=== PATIENT | female | born 1935 | race Hispanic/Latino ===

== ENCOUNTER 2018-02-11 00:52 | Emergency (ER) | payer MEDICARE, MEDICAID ==
[2018-02-11] MEDS ORDERED: traMADol HCl 50 MG TAB ONE (01:14)
== END 2018-02-11 01:50 | disposition home or self-care (01) ==
LOC: SCSER 00:52
DX: H60.91 Unspecified otitis externa, right ear (principal); E78.5 Hyperlipidemia, unspecified; I10 Essential (primary) hypertension
CPT/HCPCS: 99282

== ENCOUNTER 2018-07-08 20:39 | Emergency (ER) | payer MEDICARE, OTHER ==
[2018-07-08] MEDS ORDERED: Bacitracin Zinc 1 Packet ONE (21:27)
--- NOTE | 2018-07-08 21:30 | RAD ---
RIGHT LOWER LEG TWO VIEWS: 07/08/18 HISTORY: Right leg injury. FINDINGS: Tibia and fibula are intact. No acute fracture, dislocation, or radiopaque foreign bodies. There is c alcification throughout the arterial structures. IMPRESSION: No acute osseous abnormalities are demonstrated. Atherosclerosis. POS: [facility]
== END 2018-07-08 21:46 | disposition home or self-care (01) ==
LOC: SCSER 20:39
DX: S80.11XA Contusion of right lower leg, initial encounter (principal); E78.5 Hyperlipidemia, unspecified; I10 Essential (primary) hypertension; W20.8XXA Other cause of strike by thrown, projected or falling object, initial encounter

== ENCOUNTER 2019-06-29 17:24 | Observation (INO) | payer MEDICARE, MEDICAID ==
[~2019-06-29 17:24] MED LIST: Iopamidol 300 61% 100 ML VIAL FS ONE
[2019-06-29] MEDS ORDERED: Ondansetron PF 4 MG/2 ML Vial ONE (18:06)
[2019-06-29 18:07] LABS: Hemoglobin 14.8 g/dL (12.0-16.0); Mean Corpuscular HGB CONC 34.5 g/dL (32.0-36.0); Mean Corpuscular Hemoglobin 31.3 pg (27.0-31.0); Mean Corpuscular Volume 90.8 fL (78.0-98.0); Mean Platelet Volume 7.5 fL (7.4-10.4); Platelet Count 200 thou/uL (130-400); RBC Distribution Width 12.7 % (11.5-14.5); Red Blood Cell (RBC) Count 4.71 mill/uL (4.20-5.40); White Blood Cell (WBC) Count 14.7 thou/uL (4.8-10.8)
[2019-06-29 18:20] LABS: ALT (SGPT) 24 U/L (8-55); AST (SGOT) 44 U/L (5-34); Albumin 3.8 g/dL (3.4-4.8); Alkaline Phosphatase 166 U/L (40-110); Anion Gap 16 mmol/L (10-20); BUN (Urea Nitrogen) 15 mg/dL (9.8-20.1); Bilirubin, Total 0.4 mg/dL (0.2-1.2); CK (CPK) 56 U/L (29-168); Calc. Creatinine Clearance 0 mL/min (70-130); Calcium 8.4 mg/dL (7.8-10.44); Carbon Dioxide 20 mmol/L (23-31); Chloride 109 mmol/L (98-107); Estimated GFR-MDRD 66; Globulin 3.8 g/dL (2.4-3.5); Glucose 139 mg/dL (83-110); Potassium 4.7 mmol/L (3.5-5.1); Protein, Total 7.6 g/dL (6.0-8.3); Sodium 140 mmol/L (136-145)
[2019-06-29 18:25] LABS: Band 3 % (5-11); Eosinophils 1 % (0-10); Lymphocytes 13 % (21-51); MDiff Complete? YES; Monocytes 4 % (0-10); Neutrophil 79 % (42-75); Platelet Morphology Comment Appears Adequate; RBC Morphology Normal
--- NOTE | 2019-06-29 19:23 | CT ---
CT ABDOMEN AND PELVIS WITH CONTRAST: HISTORY: Abdominal pain, vomiting and diarrhea. COMPARISON: 12/09/2015 FINDINGS: ABDOMEN: The lung bases show a mosaic pattern with ground glass opacity and areas of decreased attenu ation. This is a similar appearance to the previous exam, could be on the basis of air trapping. No c onfluent infiltrative process is seen. The liver shows no focal abnormalities, however, the contour h as a nodular, cirrhotic appearance. The liver measures approximately 19 cm. The spleen is 11.2 cm in length. The pancreas region is unremarkable. The gallbladder is distended. No pericholecystic inflamm atory process. No obvious signs of any gallbladder wall edema. The right and left adrenal glands and the right and left kidneys are normal in size. No obstruction. There is no significant periaortic adenopathy. No significant mesenteric adenopathy is noted. There i s fluid present within the colon, which is consistent with the history of diarrhea. There are varicos ities noted with prominent paraesophageal varices. Questionable slight wall thickening to the descend ing colon, which is probably just on the basis of under-distention. PELVIS: The appendix region is unremarkable. Minimal sigmoid diverticulosis is noted. No free fluid d emonstrated. IMPRESSION: 1. Nodular, cirrhotic liver with borderline liver and spleen size and evidence of varices. 2. Distended gallbladder. 3. Fluid within the colon. Questionable slight wall thickening to the descending colon, probably on t he basis of under-distention. POS: [facility]
--- NOTE | 2019-06-29 20:05 | ULT ---
US Gallbladder RUQ History: Abdominal pain Comparison: CT abdomen and pelvis same day Findings: Real-time grayscale and color evaluation of the right upper quadrant of the abdomen was per formed. Hepatic contour is nodular. Increased hepatic echotexture. Gallbladder wall thickness is normal. No pericholecystic fluid. No cholelithiasis. Common bile duct is normal. Portal vein is patent with antegrade flow. Right kidney measures 10.8 x 4.4 x 6.3 cm without mass, hydronephrosis, or abnormal calcifications Impression: 1. Hepatic cirrhosis without mass. 2. No evidence for cholecystitis.
[2019-06-29] MEDS ORDERED: Promethazine HCl 25 MG/ML VIAL ONE (20:20)
[2019-06-29 20:33] LABS: Bilirubin Negative (Negative); Blood, Urine Trace (Negative); Clarity Clear (Clear); Glucose, Urine (Dipstick) Negative (Negative); Leukocyte Negative (Negative); Nitrite Negative (Negative); Protein, Urine (Dipstick) Negative (Neg-Trace); Urobilinogen 0.2 mg/dL (Less than 2)
[2019-06-29 20:37] LABS: Bacteria/HPF Rare-Few HPF (None Seen); RBC/HPF 0-3 HPF (0-3); Squamous Epithelial 0-3 HPF (0-3); WBC/HPF None Seen HPF (0-3)
[2019-06-29] MEDS ORDERED: Acetaminophen 650 MG Suppository PR PRN (22:12)
[2019-06-29] MEDS: Acetaminophen 325 MG TAB PO PRN (22:38)
[2019-06-30] MEDS ORDERED: Ondansetron PF 4 MG/2 ML Vial IVP PRN ×2 (05:30→11:18)
[2019-06-30] MEDS: Acetaminophen 325 MG TAB PO PRN (05:33)
[2019-06-30] MEDS ORDERED: Lactated Ringer's 1,000 ML IV SCH (09:45)
[2019-06-30] MEDS ORDERED: Acetaminophen 325 MG TAB PO PRN (11:18)
[2019-06-30] MEDS ORDERED: Guaifenesin DM 100-10/5 ML UDCUP PO PRN (11:18)
[2019-06-30] MEDS ORDERED: Alendronate Sodium 70 mg Tablet PO SCH (11:30)
[2019-06-30 11:51] LABS: #Monocytes 1.1 thou/uL (0.11-0.59); #Neutrophils 8.6 thou/uL (1.40-6.50); %Basophils 0.3 % (0.0-1.0); %Eosinophils 0.3 % (0.0-10.0); %Lymphocytes 16.9 % (21.0-51.0); %Monocytes 9.5 % (0.0-10.0); Mean Corpuscular HGB CONC 33.7 g/dL (32.0-36.0); Mean Corpuscular Hemoglobin 31.3 pg (27.0-31.0); Mean Corpuscular Volume 92.9 fL (78.0-98.0); Mean Platelet Volume 7.1 fL (7.4-10.4); Platelet Count 164 thou/uL (130-400); RBC Distribution Width 12.7 % (11.5-14.5); Red Blood Cell (RBC) Count 4.15 mill/uL (4.20-5.40); White Blood Cell (WBC) Count 11.8 thou/uL (4.8-10.8)
--- NOTE | 2019-06-30 11:57 | HP ---
REASON FOR ADMISSION: Gastroenteritis. HISTORY OF PRESENTING ILLNESS: The patient gives history of having severe nausea, vomiting, and diarrhea all from yesterday afternoon. She vomited nearly 4 or 5 times. She has had nearly 8 times watery diarrhea at home and another 5 times after arriving to the ER. No blood or mucus in the stool. From midnight, the patient has not had any diarrhea or nausea. She kind of feels good at present. The patient had abdominal colic mostly in the upper quadrant, which has again resolved at present. She lives with her daughter. The daughter does not have similar symptoms. No prior history of liver problems per patient. No complaints of fever, cough, or expectoration. On arrival, had a fever of 100 degrees here in the ER. PAST MEDICAL AND SURGICAL HISTORY: History of dyslipidemia, hypertension, osteoarthritis, GERD. No prior surgical history. CURRENT MEDICATIONS: The patient takes: 1. Alendronate 70 mg once weekly. 2. Norvasc 2.5 mg p.o. daily. 3. Coreg 3.125 mg twice daily. 4. Vytorin 10/10 mg p.o. daily. 5. Protonix 40 mg p.o. daily. ALLERGIES: TO DOXYCYCLINE, HYDROCODONE. PERSONAL HISTORY: Does not abuse alcohol or drugs. No history of smoking. She ambulates by herself. She lives with her daughter. FAMILY HISTORY: Both parents in their 80s of natural causes. REVIEW OF SYSTEMS: CONSTITUTIONAL: Negative for weight loss or gain, ability to conduct usual activities. SKIN: Negative for rash, itching. EYES: Negative for double vision, pain. ENT/MOUTH: Negative for nose bleeding, neck stiffness, pain, tenderness. CARDIOVASCULAR: Negative for palpitations, dyspnea on exertion, orthopnea. RESPIRATORY: Negative for shortness of breath, wheezing, cough, hemoptysis, fever or night sweats. GASTROINTESTINAL: Negative for poor appetite, abdominal pain, heartburn, nausea , vomiting, constipation, or diarrhea. GENITOURINARY: Negative for urgency, frequency, dysuria, nocturia. MUSCULOSKELETAL: Negative for pain, swelling. NEUROLOGIC/PSYCHIATRIC: Negative for anxiety, depression. ALLERGY/IMMUNOLOGIC: Negative for skin rash, bleeding tendency. MUSCULOSKELETAL: Negative for pain, swelling. NEUROLOGIC/PSYCHIATRIC: Negative for anxiety, depression. ALLERGY/IMMUNOLOGIC: Negative for skin rash, bleeding tendency. PHYSICAL EXAMINATION: GENERAL: The patient is an 84-year-old female, who is currently not in any acute distress. VITAL SIGNS: Blood pressure 162/88, pulse 106 per minute, respiratory rate 20 per minute, temperature 100 degrees Fahrenheit, saturating 97% on room air. NECK: Supple. No elevated JVD. HEENT: Eyes; extraocular muscles intact. Pupils are reacting to light. Oral cavity, mucous membranes are dry. No exudates or congestion. CARDIOVASCULAR SYSTEM: S1 and S2 heard. Regular rhythm. RESPIRATORY SYSTEM: Air entry 1+ bilateral. No rales or rhonchi. ABDOMEN: Soft. Bowel sounds heard. No tenderness, rigidity, or guarding. EXTREMITIES: No peripheral edema or calf tenderness. VASCULAR SYSTEM: Peripheral pulses 1+ bilateral. No ischemic ulcerations or gangrene. CENTRAL NERVOUS SYSTEM: No gross focal deficits noted. The patient is alert, awake, and oriented well. PSYCHIATRIC SYSTEM: The patient's mood is euthymic. No hallucinations or delusions. LABORATORY DATA: White count of 14, H and H of 14 and 42, platelet count 200, MCV is 90 with 79% neutrophils, 3% bands. Serum bicarb 20, serum chloride 109, BUN 15, creatinine 0.8, serum glucose 139, AST 44, ALT 24, alkaline phosphatase 166, total bilirubin 0.4, albumin is 3.8, lipase is 17. CT of the abdomen and pelvis with contrast done showed cirrhotic liver with enlarged spleen. The gallbladder was distended. No evidence of gallbladder wall edema. There is fluid within the colon, especially the descending colon with mild thickening. Ultrasound of right upper quadrant done shows hepatic cirrhosis without mass. Common bile duct size was normal. Portal vein is patent and flow is antegrade. No evidence of cholecystitis. EKG done shows normal sinus rhythm at 93 beats per minute. There is questionable Q waves in V1, V2. CLINICAL IMPRESSION AND PLAN: The patient will be under observation for severe gastroenteritis with [id number] dehydration. The patient is currently feeling well with fluid resuscitation done in the ER. She has received a total of 2 L IV fluid in the ER, a dose of Phenergan and Zofran. Currently, her diarrhea has completely stopped from midnight. If the patient were to have diarrhea, it will be collected for cultures. She will be placed on solid diet. We will give her one more bag of lactated Ringer. We will continue her home dose of Norvasc, Coreg, Zetia, and Protonix. If the patient were to feel better after her dinner with solid food, she can be safely discharged home. If the patient were to have further nausea, vomiting, or diarrhea, she needs to stay overnight. The patient does not know if she has cirrhosis and we will obtain hepatitis panel. Job ID: [id number] MTDD
[2019-06-30 12:20] LABS: Anion Gap 10 mmol/L (10-20); BUN (Urea Nitrogen) 18 mg/dL (9.8-20.1); Calc. Creatinine Clearance 72 mL/min (70-130); Calcium 7.6 mg/dL (7.8-10.44); Carbon Dioxide 21 mmol/L (23-31); Chloride 113 mmol/L (98-107); Estimated GFR-MDRD 69; Glucose 109 mg/dL (83-110); Potassium 3.6 mmol/L (3.5-5.1); Sodium 140 mmol/L (136-145)
[2019-06-30 12:45] LABS: HBCM Index 0.07 S/CO (0-0.79); HBSAg Index 0.18 S/CO (0-0.99); Hep A IgM AB Non-Reactive (NonReactive); Hep A IgM S/CO 0.19 S/CO (0-0.79); Hep B Surf Ag Non-Reactive S/CO (NonReactive); Hep C IgG Ab Non-Reactive (NonReactive); Hep C Index 0.06 S/CO (0-0.79); Hepatitis B Core IgM Abs Non-Reactive (NonReactive)
[2019-06-30 13:31] VITALS: BMI 31.4
[2019-06-30] MEDS: Carvedilol 3.125 MG TAB PO SCH (20:56)
[2019-06-30] MEDS ORDERED: Simvastatin 5 MG TAB PO SCH (21:00)
[2019-07-01 06:10] LABS: #Basophils 0.1 thou/uL (0.0-0.2); #Eosinphils 0.2 thou/uL (0.0-0.7); #Lymphocytes 2.6 thou/uL (1.20-3.40); #Monocytes 0.9 thou/uL (0.11-0.59); %Basophils 0.6 % (0.0-1.0); %Eosinophils 1.9 % (0.0-10.0); %Lymphocytes 29.8 % (21.0-51.0); %Monocytes 10.6 % (0.0-10.0); %Neutrophils 57.1 % (42.0-75.0); Hemoglobin 12.1 g/dL (12.0-16.0); Mean Corpuscular HGB CONC 34.4 g/dL (32.0-36.0); Mean Corpuscular Hemoglobin 32.2 pg (27.0-31.0); Mean Corpuscular Volume 93.6 fL (78.0-98.0); Mean Platelet Volume 7.4 fL (7.4-10.4); Platelet Count 144 thou/uL (130-400); RBC Distribution Width 12.6 % (11.5-14.5); Red Blood Cell (RBC) Count 3.74 mill/uL (4.20-5.40); White Blood Cell (WBC) Count 8.7 thou/uL (4.8-10.8)
[2019-07-01 06:30] LABS: ALT (SGPT) 13 U/L (8-55); AST (SGOT) 30 U/L (5-34); Albumin 2.9 g/dL (3.4-4.8); Alkaline Phosphatase 88 U/L (40-110); Anion Gap 10 mmol/L (10-20); BUN (Urea Nitrogen) 10 mg/dL (9.8-20.1); Bilirubin, Total 0.4 mg/dL (0.2-1.2); Calc. Creatinine Clearance 82 mL/min (70-130); Calcium 7.5 mg/dL (7.8-10.44); Carbon Dioxide 21 mmol/L (23-31); Chloride 113 mmol/L (98-107); Estimated GFR-MDRD 81; Globulin 2.9 g/dL (2.4-3.5); Glucose 96 mg/dL (83-110); Potassium 3.7 mmol/L (3.5-5.1); Protein, Total 5.8 g/dL (6.0-8.3); Sodium 140 mmol/L (136-145)
[2019-07-01] MEDS: Carvedilol 3.125 MG TAB PO SCH (08:33)
[2019-07-01] MEDS ORDERED: Enoxaparin Sodium 40 MG/0.4 ML SYRINGE SC SCH (09:00)
[2019-07-01] MEDS ORDERED: Ezetimibe 10 MG TAB PO SCH (09:00)
[2019-07-01] MEDS ORDERED: Amlodipine 5 MG TAB PO SCH (09:00)
[2019-07-01 12:51] VITALS: BP 150/65; TEMP 97.5
--- NOTE | 2019-07-02 08:32 | DIS ---
DATE OF ADMISSION: 06/29/2019 DATE OF DISCHARGE: 07/01/2019 PRIMARY CARE PROVIDER: Dr. Bee Valadez. DISCHARGE DIAGNOSES: 1. Moderate to severe dehydration. 2. Severe gastroenteritis. CONDITION OF PATIENT ON THE DAY OF DISCHARGE: Stable. I assessed Ms. Slaughter on the day of discharge. She denies any chest pain or shortness of breath. She denies any nausea, vomiting, or diarrhea. Vital signs are stable. S1 and S2 are heard, regular. Lungs are clear to auscultation bilaterally. DISCHARGE MEDICATIONS: No change was made to her pre-admission home medications as dictated by Dr. Arguelles in his history and physical note, dated June 30, 2019. FOLLOWUP APPOINTMENTS: The patient is advised to follow up with primary care provider in 3 days' time. She is also advised to obtain final stool culture result when she sees her primary care provider. At the time of this dictation, the final culture report is pending. HOSPITAL COURSE: Ms. Slaughter is a pleasant 84-year-old lady, who was admitted to [facility] on June 30, 2019, on observation status for moderate to severe dehydration in the context of severe gastroenteritis. Please refer to Dr. Arguelles's history and physical note dated June 30, 2019, for further details. Ultrasound report of the abdomen showed hepatic cirrhosis. CT scan of the abdomen showed nodular cirrhotic liver with borderline liver and spleen size and evidence of varices. She is advised to follow up with her primary care provider regarding these findings. She improved clinically with fluid resuscitation. Campylobacter antigen and shiga toxins were negative. Clostridium difficile test was negative as well. She is being discharged home in a stable condition after clinical improvement. Many thanks for allowing me to participate in your patient's care. Please feel free to contact me with any questions or concerns. DISCHARGE DESTINATION: Home. On the day of discharge, she has white count of 8700, hemoglobin 12.1, platelet count 144,000, sodium 140, potassium 3.7, carbon dioxide 21, and creatinine 0.69. Total bilirubin is 0.4, AST 30, ALT 13, and alkaline phosphatase 88. Job ID: [id number]
== END 2019-07-01 12:41 | disposition home or self-care (01) ==
LOC: SCSER 17:24 → T4-B 21:39
PROVIDERS: ADMIT Hospitalist; ATTEND Hospitalist
DX: E86.0 Dehydration (principal); K52.9 Noninfective gastroenteritis and colitis, unspecified; K74.60 Unspecified cirrhosis of liver; E78.5 Hyperlipidemia, unspecified; I10 Essential (primary) hypertension; M19.90 Unspecified osteoarthritis, unspecified site; K21.9 Gastro-esophageal reflux disease without esophagitis; Z79.83 Long term (current) use of bisphosphonates; Z79.899 Other long term (current) drug therapy; Z88.1 Allergy status to other antibiotic agents; Z88.5 Allergy status to narcotic agent
CPT/HCPCS: 51701; 74177; 76705; 80048; 80053 ×2; 80074; 82550; 83605; 83690; 84484; 85025 ×3; 87045; 87046; 87324; 87427 ×2; 87449 ×2; 93005; 96361 ×3; 96365; 96372; 96375; 99285; G0378 ×4; 36415; 81003; 81015; A4353; J1650; J2405; J2550; Q9967

== ENCOUNTER 2019-08-20 10:36 | Emergency (ER) | payer MEDICARE, MEDICAID ==
[2019-08-20] MEDS ORDERED: Adacel (T-DAP) 0.5 ML SYRINGE ONE (10:50)
[2019-08-20 11:29] LABS: #Basophils 0.1 thou/uL (0.0-0.2); #Eosinphils 0.2 thou/uL (0.0-0.7); #Lymphocytes 1.9 thou/uL (1.20-3.40); #Monocytes 0.7 thou/uL (0.11-0.59); #Neutrophils 5.6 thou/uL (1.40-6.50); %Basophils 0.8 % (0.0-1.0); %Lymphocytes 22.6 % (21.0-51.0); %Monocytes 8.2 % (0.0-10.0); %Neutrophils 66.4 % (42.0-75.0); Hemoglobin 13.4 g/dL (12.0-16.0); Mean Corpuscular HGB CONC 33.6 g/dL (32.0-36.0); Mean Corpuscular Hemoglobin 31.2 pg (27.0-31.0); Mean Corpuscular Volume 92.9 fL (78.0-98.0); Mean Platelet Volume 8.1 fL (7.4-10.4); Platelet Count 162 thou/uL (130-400); RBC Distribution Width 12.5 % (11.5-14.5); Red Blood Cell (RBC) Count 4.29 mill/uL (4.20-5.40); White Blood Cell (WBC) Count 8.5 thou/uL (4.8-10.8)
[2019-08-20] MEDS ORDERED: Lidocaine 1% w/Epinephrine 1:100K 20 ML VIAL ONE (11:29)
[2019-08-20 11:37] LABS: Anion Gap 16 mmol/L (10-20); BUN (Urea Nitrogen) 14 mg/dL (9.8-20.1); Calc. Creatinine Clearance 0 mL/min (70-130); Calcium 9.2 mg/dL (7.8-10.44); Carbon Dioxide 23 mmol/L (23-31); Chloride 107 mmol/L (98-107); Estimated GFR-MDRD 78; Glucose 124 mg/dL (83-110); Potassium 4.6 mmol/L (3.5-5.1); Sodium 141 mmol/L (136-145)
--- NOTE | 2019-08-20 11:54 | CT ---
CT HEAD WITHOUT CONTRAST: Date: 08/20/19 INDICATION: Fall with injury to head. COMPARISON: 05/13/16. FINDINGS: Ventricles have normal size and position. No evidence of intracranial mass or infarct. IMPRESSION: No acute abnormality. POS: [facility]
[2019-08-20] MEDS ORDERED: Bacitracin 1 PK ONE (12:04)
== END 2019-08-20 12:07 | disposition home or self-care (01) ==
LOC: SCSER 10:36
DX: S01.01XA Laceration without foreign body of scalp, initial encounter (principal); E78.5 Hyperlipidemia, unspecified; E78.00 Pure hypercholesterolemia, unspecified; I10 Essential (primary) hypertension; M19.90 Unspecified osteoarthritis, unspecified site; Z23 Encounter for immunization; W18.30XA Fall on same level, unspecified, initial encounter
CPT/HCPCS: 12002; 36415; 70450; 80048; 85025; 90471; 90715; 93005

== ENCOUNTER 2020-02-12 13:42 | Outpatient (CLI) | payer MEDICARE, MEDICAID ==
--- NOTE | 2020-02-12 14:32 | CT ---
EXAM: CT Cervical Spine WO Con PROVIDED CLINICAL HISTORY: Neck pain status post fall COMPARISON: None FINDINGS: There is no evidence for fracture or traumatic subluxation. There is slight anterolisthesis of C3 on C4 and C4 on C5 on the basis of degenerative change. Vertebral body heights appear preserved. Conspicuous facet arthritis is seen left of midline at C3-4, C4-5 and C5-6. Uncinate process hypertro phy and facet arthritis left of midline at C5-6 produces at least moderate left foraminal narrowing. No additional bony canal or foraminal narrowing is apparent. No prevertebral soft tissue s welling apparent. Minimal vascular calcification. The visualized lung apices appear clear. IMPRESSION: 1. No evidence for fracture or traumatic subluxation. 2. Cervical degenerative changes as described.
--- NOTE | 2020-02-12 18:41 | MRI ---
MRI OF THE BRAIN WITHOUT CONTRAST: 02/12/20 HISTORY: Headaches. TECHNIQUE: Multiplanar and multisequence MRI images were obtained of the brain without contrast. FINDINGS: There are a few very subtle foci of high FLAIR signal in the periventricular white matter which may b e secondary to small vessel ischemic disease. No restricted diffusion is seen to suggest an acute inf arction. There is no evidence of hydrocephalus, intracranial hemorrhage or extra-axial fluid collection. The e xpected flow voids are present. The corpus callosum, pituitary and craniocervical junction are unrema rkable. The calvarium and overlying soft tissues are unremarkable. The visualized paranasal sinuses and masto id air cells are well aerated. IMPRESSION: No evidence of acute intracranial abnormality. POS: [facility]
== END 2020-02-12 13:43 | disposition home or self-care (01) ==
LOC: BICCT 13:42
PROVIDERS: ATTEND Family Medicine
DX: M54.2 Cervicalgia (principal); G44.89 Other headache syndrome; M47.812 Spondylosis without myelopathy or radiculopathy, cervical region
CPT/HCPCS: 70551; 72125

== ENCOUNTER 2023-04-30 19:28 | Emergency (ER) | payer OTHER, MEDICAID ==
[~2023-04-30 19:28] MED LIST changes: -Iopamidol 300 61% 100 ML VIAL FS ONE; +Iopamidol-370 76% 500 ML MDV (1 ML CHARGE) ONE
[2023-04-30] MEDS ORDERED: Nitroglycerin 0.4 MG TAB 1 EACH ONE (19:53)
[2023-04-30 20:00] LABS: #Basophils 0.1 thou/uL (0.0-0.2); #Eosinphils 0.3 thou/uL (0.0-0.7); #Monocytes 0.9 thou/uL (0.11-0.59); #Neutrophils 5.4 thou/uL (1.40-6.50); %Basophils 0.6 % (0.0-1.0); %Eosinophils 3.1 % (0.0-10.0); %Lymphocytes 21.8 % (21.0-51.0); %Monocytes 10.6 % (0.0-10.0); %Neutrophils 63.5 % (42.0-75.0); Hematocrit 35.4 % (36.0-47.0); Hemoglobin 12.1 g/dL (12.0-16.0); Mean Corpuscular HGB CONC 34.2 g/dL (32.0-36.0); Mean Corpuscular Hemoglobin 31.1 pg (27.0-31.0); Mean Platelet Volume 9.5 fL (7.4-10.4); Platelet Count 160 10x3/uL (130-400); RBC Distribution Width 13.1 % (11.5-14.5); Red Blood Cell (RBC) Count 3.89 mill/uL (4.20-5.40); White Blood Cell (WBC) Count 8.5 10x3/uL (4.8-10.8)
[2023-04-30 20:27] LABS: ALT (SGPT) 11 U/L (8-55); AST (SGOT) 24 U/L (5-34); Albumin 3.5 g/dL (3.4-4.8); Alkaline Phosphatase 118 U/L (40-110); Anion Gap 14 mmol/L (10-20); BUN (Urea Nitrogen) 25 mg/dL (9.8-20.1); Bilirubin, Total 0.3 mg/dL (0.2-1.2); Calc. Creatinine Clearance 0 mL/min (70-130); Calcium 8.7 mg/dL (7.8-10.44); Carbon Dioxide 21 mmol/L (23-31); Chloride 104 mmol/L (98-107); Estimated GFR 55; Globulin 3.4 g/dL (2.4-3.5); Glucose 144 mg/dL (83-110); Potassium 3.9 mmol/L (3.5-5.1); Protein, Total 6.9 g/dL (5.8-8.1); Sodium 135 mmol/L (136-145)
[2023-04-30] MEDS ORDERED: Morphine 4 MG/ML VIAL ONE (21:43)
== END 2023-05-01 | disposition home or self-care (01) ==
LOC: ERS 19:28
DX: R07.81 Pleurodynia (principal); I10 Essential (primary) hypertension; E78.5 Hyperlipidemia, unspecified; Z79.899 Other long term (current) drug therapy
CPT/HCPCS: 36415; 71045; 71275; 80053; 83880; 84484; 85025; 85379; 93005; 94760; 96374; J2270; Q9967

== ENCOUNTER 2024-11-02 11:02 | Inpatient (IN) | payer OTHER, MEDICAID ==
[2024-11-02 12:26] LABS: #Basophils 0.04 10x3/uL (0.0-0.2); %Basophils 0.5 % (0.0-1.0); %Eosinophils 2.7 % (0.0-10.0); %Lymphocytes 21.3 % (21.0-51.0); %Monocytes 9.5 % (0.0-10.0); %Neutrophils 65.6 % (42.0-75.0); Hematocrit 39.1 % (36.0-47.0); Hemoglobin 13.1 g/dL (12.0-16.0); Mean Corpuscular HGB CONC 33.5 g/dL (32.0-36.0); Mean Corpuscular Volume 92.4 fL (78.0-98.0); Mean Platelet Volume 9.7 fL (7.4-10.4); Platelet Count 165 10x3/uL (130-400); RBC Distribution Width 13.5 % (11.5-14.5); Red Blood Cell (RBC) Count 4.23 mill/uL (4.20-5.40)
[2024-11-02 12:38] LABS: INR-International Normal Ratio 1.1; Prothrombin Time 14.4 sec (12.0-14.7)
[2024-11-02 12:48] LABS: ALT (SGPT) 14 U/L (Less than 34); AST (SGOT) 48 U/L (11-34); Albumin 3.1 g/dL (3.1-4.5); Alkaline Phosphatase 129 U/L (40-110); Anion Gap 13 mmol/L (10-20); BUN (Urea Nitrogen) 20 mg/dL (9.8-20.1); Bilirubin, Total 0.8 mg/dL (0.3-1.2); Calc. Creatinine Clearance 0 mL/min (70-130); Calcium 9.2 mg/dL (7.8-10.44); Carbon Dioxide 24 mmol/L (23-31); Chloride 107 mmol/L (98-107); Estimated GFR 65; Glucose 122 mg/dL (83-110); Potassium 4.5 mmol/L (3.5-5.1); Protein, Total 7.1 g/dL (5.8-8.1); Sodium 139 mmol/L (136-145); Troponin I 0.022 ng/mL (< 0.028)
[2024-11-02] MEDS ORDERED: Morphine 2 MG/ML VIAL ONE (14:08)
[2024-11-02] MEDS ORDERED: Furosemide 40 MG (4 mL) VIAL ONE (14:08)
[2024-11-02 15:54] LABS: Magnesium 1.8 mg/dL (1.6-2.6)
[2024-11-02] MEDS ORDERED: Ondansetron PF 4 MG/2 ML Vial IVP PRN (16:04)
[2024-11-02] MEDS ORDERED: Calcium Carbonate 500 MG ChewTAB PO PRN (16:04)
[2024-11-02] MEDS ORDERED: Electrolyte Replacement Protocol FS PRN (16:15)
[2024-11-02 16:33] LABS: Troponin I 0.014 ng/mL (< 0.028)
[2024-11-02 17:24] VITALS: BMI 31.1
[2024-11-02] MEDS: Acetaminophen 325 MG TAB PO PRN (17:41)
[2024-11-02] MEDS: Magnesium 2 GM/50 ML(in water) 2 GM in Premix 1 BAG IVPB SCH (19:43)
[2024-11-02] MEDS: Carvedilol 3.125 MG TAB PO SCH (19:44)
[2024-11-02] MEDS: Electrolyte Replacement Protocol 1 EACH FS ONE (19:50)
[2024-11-02 20:25] LABS: Troponin I 0.011 ng/mL (< 0.028)
[2024-11-02] MEDS ORDERED: Famotidine 20 MG TAB PO SCH (21:00)
[2024-11-03] MEDS: Furosemide 20 MG (2 mL) VIAL SLOW IVP SCH (04:51)
[2024-11-03 05:54] LABS: #Basophils 0.05 10x3/uL (0.0-0.2); %Basophils 0.8 % (0.0-1.0); %Eosinophils 3.3 % (0.0-10.0); %Lymphocytes 30.2 % (21.0-51.0); %Monocytes 11.2 % (0.0-10.0); %Neutrophils 54.2 % (42.0-75.0); Hematocrit 35.7 % (36.0-47.0); Hemoglobin 11.9 g/dL (12.0-16.0); Mean Corpuscular HGB CONC 33.3 g/dL (32.0-36.0); Mean Corpuscular Hemoglobin 30.8 pg (27.0-31.0); Mean Corpuscular Volume 92.5 fL (78.0-98.0); Mean Platelet Volume 9.5 fL (7.4-10.4); Platelet Count 156 10x3/uL (130-400); RBC Distribution Width 13.6 % (11.5-14.5); Red Blood Cell (RBC) Count 3.86 mill/uL (4.20-5.40)
[2024-11-03 06:07] LABS: ALT (SGPT) 14 U/L (Less than 34); AST (SGOT) 36 U/L (11-34); Albumin 2.9 g/dL (3.1-4.5); Alkaline Phosphatase 106 U/L (40-110); Anion Gap 14 mmol/L (10-20); BUN (Urea Nitrogen) 28 mg/dL (9.8-20.1); Bilirubin, Total 0.7 mg/dL (0.3-1.2); Calc. Creatinine Clearance 50 mL/min (70-130); Calcium 9.1 mg/dL (7.8-10.44); Carbon Dioxide 25 mmol/L (23-31); Chloride 105 mmol/L (98-107); Estimated GFR 49; Globulin 3.8 g/dL (2.4-3.5); Glucose 116 mg/dL (83-110); Magnesium 2.4 mg/dL (1.6-2.6); Potassium 4.2 mmol/L (3.5-5.1); Protein, Total 6.7 g/dL (5.8-8.1); Sodium 140 mmol/L (136-145)
[2024-11-03] MEDS: Pantoprazole 40 MG DR.TAB PO SCH (08:23)
[2024-11-03] MEDS: Aspirin 81 mg Enteric Coated Tablet PO SCH (08:23)
[2024-11-03 10:27] VITALS: BMI 31.7
[2024-11-03] MEDS: Ondansetron ODT 4 MG TAB PO PRN (10:53)
[2024-11-03] MEDS: Senokot S 8.6-50 MG TAB PO PRN (20:44)
[2024-11-03] MEDS ORDERED: Carvedilol 3.125 MG TAB PO SCH (21:00)
[2024-11-04 07:30] VITALS: BP 119/56; TEMP 98.1
[2024-11-04] MEDS: Escitalopram Oxalate 10 mg Tablet PO SCH (08:30)
[2024-11-04] MEDS: FLU (Fluad Triv) TS24-25 (65UP)/MF59C/PF 45 MCG/0.5 ML Syringe IM ONE (11:01)
== END 2024-11-04 11:03 | disposition home or self-care (01) | DRG 291 ==
LOC: ERS 11:02 → OBS 14:38 → OBSVTOIN 11-03 12:40
PROVIDERS: ADMIT Internal Medicine; ATTEND Hospitalist
DX: I13.0 Hypertensive heart and chronic kidney disease with heart failure and stage 1 through stage 4 chronic kidney disease, or unspecified chronic kidney disease (principal); I50.33 Acute on chronic diastolic (congestive) heart failure; I25.10 Atherosclerotic heart disease of native coronary artery without angina pectoris; N18.2 Chronic kidney disease, stage 2 (mild); E78.5 Hyperlipidemia, unspecified; Z88.8 Allergy status to other drugs, medicaments and biological substances; K21.9 Gastro-esophageal reflux disease without esophagitis; F41.9 Anxiety disorder, unspecified; Z79.82 Long term (current) use of aspirin; Z79.899 Other long term (current) drug therapy
CPT/HCPCS: 36415; 70496; 70498; 71045; 80053; 83735; 83880; 84484; 85025; 85610; 85730; 93005; 93306; 93798; 93970; 96374; 96375; 96376; G0378; J1940; J2272; J3475; Q0162; Q9967